=== PATIENT | male | born 1950 | race Caucasian/White ===

== ENCOUNTER 2017-01-23 18:15 | Observation (INO) | payer OTHER ==
--- NOTE | 2017-01-23 18:45 | CPEKG ---
Heart Rate: 95 RR Interval: 632 P-R Interval: 204 QRSD Interval: 84 QT Interval: 344 QTC Interval: 433 P [place]: 47 QRS [place]: 67 T Wave [place]: 17 EKG Severity - NORMAL ECG - EKG Impression: INCOMPLETE ANALYSIS DUE TO MISSING DATA IN PRECORDIAL LEAD(S) EKG Impression: SINUS RHYTHM Electronically Signed By: Kapil Hernandez 23-Jan-2017 22:08:13
--- NOTE | 2017-01-23 19:09 | EDPHY ---
H & P Stated Complaint: fall onto back, chest/head pain, on blood thinners Time Seen by Provider: 01/23/17 18:35 HPI/ROS: CHIEF COMPLAINT: Headache, chest pain following fall earlier today HISTORY OF PRESENT ILLNESS: The patient [place]. The patient drove to [place] today and visit [place]. Apparently the patient slipped and fell on a icy slope and landed on his backside. Initially he was not bothered by pain but then developed a headache approximately an hour later and some anterior chest discomfort and shortness of breath. The patient does have a history of pulmonary embolism and is currently anticoagulated with Coumadin. The patient did not actually strike his head when he fell. REVIEW OF SYSTEMS: A comprehensive 10 point review of systems is otherwise negative aside from elements mentioned in the history of present illness. Source: Patient Exam Limitations: No limitations - Personal History Current Tetanus/Diphtheria Vaccine: Yes Current Tetanus Diphtheria and Acellular Pertussis (TDAP): Yes - Medical/Surgical History Hx Asthma: No Hx Chronic Respiratory Disease: No Hx Diabetes: No Hx Cardiac Disease: No Hx Renal Disease: No Hx Cirrhosis: No Hx Alcoholism: No Hx HIV/AIDS: No Hx Splenectomy or Spleen Trauma: No Other PMH: PEs, cholecystectomy, skull fx, pins L side of face, parkinsons, mylofibrosis, lyme's disease - Social History Smoking Status: Never smoked - Physical Exam Exam: General Appearance: No acute distress Head: Atraumatic Eyes: Pupils equal, round, reactive ENT, Mouth: No hemotympanum, no oral trauma Neck: Nontender, trachea midline Respiratory: No chest wall tender, subcutaneous air, lungs clear bilaterally Cardiovascular: Regular rate and rhythm Abdomen: Abdomen is soft and nontender, pelvis stable Skin: No lacerations, No abrasion Back: No midline T/L/S pain Extremities: Nontender, full range of motion Neurological: A&Ox3, normal motor function, normal sensory exam Constitutional: Initial Vital Signs Temperature (C) 36.8 C 01/23/17 18:19 Heart Rate 96 01/23/17 18:19 Respiratory Rate 15 01/23/17 18:19 Blood Pressure 132/81 H 01/23/17 18:19 O2 Sat (%) 90 L 01/23/17 18:19 O2 Delivery Mode Nasal Cannula O2 (L/minute) 2 Allergies/Adverse Reactions: doxycycline Allergy (Verified 01/23/17 18:18) Sulfa (Sulfonamide Antibiotics) Allergy (Verified 01/23/17 18:18) Home Medications: Medication Instructions Recorded Acetaminophen [Tylenol ES 500 mg 1,000 mg PO Q6H PRN 01/23/17 (*)] Carbidopa/Levodopa [Rytary ER 2 each PO DAILY@22 01/23/17 61.25 mg-245 mg Cap] Carbidopa/Levodopa [Rytary ER 3 each PO QID@06,10,14,18 01/23/17 61.25 mg-245 mg Cap] Cholecalciferol Vit D3 [Vitamin D3 2,000 units PO DAILY 01/23/17 (*)] Herbals/Supplements -Info Only 1 ea PO DAILY 01/23/17 Multivitamins [Multivitamin (*)] 1 each PO DAILY 01/23/17 [place]-3 Fatty Acids [Fish Oil 1000 2,000 mg PO DAILY 01/23/17 mg (*)] Ropinirole HCl [Ropinirole ER] 16 mg PO DAILY@19 01/23/17 Warfarin Sodium [Coumadin 2MG (*)] 6 mg PO MOTUWEFRSA@16 01/23/17 Warfarin Sodium [Coumadin 2MG (*)] 7 mg PO SUTH@16 01/23/17 traZODone [traZODONE 50MG (*)] 100 mg PO HS 01/23/17 Medical Decision Making - Diagnostics EKG Interpretation: EKG: Complete interpretation has been separately recorded in the [email or web address] archive. Summary impression: Sinus rhythm, rate 95 Imaging: CT head without contrast: Negative for acute intracranial hemorrhage, old skull fracture noted, old facial hardware noted. Images reviewed by myself and discussed with radiologist Dr. Nguyen. ED Course/Re-evaluation: The patient presents the emergency department with complaints of headache following a mechanical fall earlier today. Given the fact he is anticoagulated a stat CT scan of his head was ordered which fortunately demonstrated no evidence of intracranial hemorrhage. The patient also complains of some mild anterior chest discomfort and dyspnea. The patient's initial EKG demonstrates nonspecific ST T wave changes but no evidence of ST segment elevation myocardial infarction. The patient was placed on supplemental oxygen. He had an IV established. He received a L of normal saline. The patient's chest x-ray did demonstrate no evidence of a focal infiltrate. Given the patient's ongoing complaints of chest pain I did order a CT pulmonary angiogram to exclude dissection. This was interpreted by Dr. Nguyen as showing a possible lingular infiltrate but no evidence of aortic dissection or pulmonary embolism. The patient's initial EKG demonstrates nonspecific changes and his initial troponin is normal. The patient had serial examinations in the ED and continues to complain of some anterior chest pain and headache. I suspect the patient's symptoms are secondary to a mild altitude illness. Given the patient's ongoing chest pain and subtle EKG changes I do feel he should be admitted to the hospital for observation this evening. Consultation is made with Dr. Lavinia Mathis from the hospitalist service who will admit the patient this evening. Differential Diagnosis: Differential diagnosis considered includes intracranial hemorrhage, aortic dissection, myocardial infarction, altitude illness, pneumonia - Data Points Laboratory Results: Laboratory Results 01/23/17 19:20 01/23/17 19:20 01/23/17 01/23/17 01/23/17 19:21 19:20 19:20 WBC RBC Hgb POC Hgb 10.2 gm/dL L gm/dL (14.5-17.3) Hct POC Hct 30 % L % (42.8-50.6) MCV MCH MCHC RDW Plt Count MPV Neut % (Auto) Lymph % (Auto) [place] % (Auto) Eos % (Auto) Baso % (Auto) Nucleat RBC Rel Count Absolute Neuts (auto) Absolute Lymphs (auto) Absolute Monos (auto) Absolute Eos (auto) Absolute Basos (auto) Absolute Nucleated RBC Immature Gran % Seg Neutrophils % Band Neutrophils % Lymphocytes % Monocytes % Eosinophils % Basophils % Immature Gran # Absolute Seg Neuts Absolute Band Neuts Absolute Lymphocytes Absolute Monocytes Absolute Eosinophils Absolute Basophils Nucleated RBCs Platelet Estimate Large Platelets Hypochromasia Elliptocytes Acanthocytes (Spur) Smear Review By PT 23.9 SEC H SEC (12.0-15.0) INR 2.12 H (0.83-1.16) APTT 43.2 SEC H SEC (23.0-38.0) POC Sodium 138 mEq/L mEq/L (134-144) Sodium 135 mEq/L mEq/L (134-144) POC Potassium 4.2 mEq/L mEq/L (3.3-5.0) Potassium 4.8 mEq/L mEq/L (3.5-5.2) POC Chloride 99 mEq/L mEq/L (96-108) Chloride 101 mEq/L mEq/L (97-110) Carbon Dioxide 25 mEq/l mEq/l (22-31) Anion Gap 9 mEq/L mEq/L (8-16) POC BUN 18 mg/dL mg/dL (7-23) BUN 19 mg/dL mg/dL (7-23) Creatinine 0.8 mg/dL mg/dL (0.7-1.3) POC Creatinine 0.9 mg/dL mg/dL (0.8-1.5) Estimated GFR > 60 Glucose 97 mg/dL mg/dL (70-100) POC Glucose 105 mg/dL H mg/dL (70-100) Calcium 9.1 mg/dL mg/dL (8.5-10.4) Troponin I < 0.012 ng/mL ng/mL (0-0.034) NT-Pro-B Natriuret Pep 459 pg/mL H pg/mL (0-125) 01/23/17 19:20 WBC 13.02 10^3/uL H 10^3/uL (3.80-9.50) RBC 3.60 10^6/uL L 10^6/uL (4.40-6.38) Hgb 9.3 g/dL L g/dL (13.7-17.5) POC Hgb Hct 29.8 % L % (40.0-51.0) POC Hct MCV 82.8 fL fL (81.5-99.8) MCH 25.8 pg L pg (27.9-34.1) MCHC 31.2 g/dL L g/dL (32.4-36.7) RDW 25.6 % H % (11.5-15.2) Plt Count 592 10^3/uL H 10^3/uL (150-400) MPV 10.8 fL fL (8.7-11.7) Neut % (Auto) Not Reported Lymph % (Auto) Not Reported [place] % (Auto) Not Reported Eos % (Auto) Not Reported Baso % (Auto) Not Reported Nucleat RBC Rel Count 1.5 % H % (0.0-0.2) Absolute Neuts (auto) Not Reported Absolute Lymphs (auto) Not Reported Absolute Monos (auto) Not Reported Absolute Eos (auto) Not Reported Absolute Basos (auto) Not Reported Absolute Nucleated RBC 0.19 10^3/uL H 10^3/uL (0-0.01) Immature Gran % Not Reported Seg Neutrophils % 79 % % Band Neutrophils % 4 % % Lymphocytes % 10 % % Monocytes % 4 % % Eosinophils % 1 % % Basophils % 2 % % Immature Gran # Not Reported Absolute Seg Neuts 10.29 10^/uL H 10^/uL (1.70-6.50) Absolute Band Neuts 0.52 10^3/uL 10^3/uL (0.00-0.70) Absolute Lymphocytes 1.30 10^3/uL 10^3/uL (1.00-3.00) Absolute Monocytes 0.52 10^3/uL 10^3/uL (0.30-0.80) Absolute Eosinophils 0.13 10^3/uL 10^3/uL (0.03-0.40) Absolute Basophils 0.26 10^3/uL H 10^3/uL (0.02-0.10) Nucleated RBCs 1 /100 WBC H /100 WBC (0-0) Platelet Estimate INCREASED H (ADEQ) Large Platelets PRESENT H Hypochromasia 2+ H Elliptocytes 2+ H Acanthocytes (Spur) 1+ H Smear Review By Pending PT INR APTT POC Sodium Sodium POC Potassium Potassium POC Chloride Chloride Carbon Dioxide Anion Gap POC BUN BUN Creatinine POC Creatinine Estimated GFR Glucose POC Glucose Calcium Troponin I NT-Pro-B Natriuret Pep Point of Care Test Results: 01/23/17 19:21 POC Sodium 138 POC Potassium 4.2 POC Chloride 99 POC BUN 18 POC Creatinine 0.9 POC Glucose 105 H Departure - Departure Disposition: [facility] Inpatient Acute Clinical Impression: Headache, Chest pain, Altitude illness Condition: Fair
[2017-01-23] MEDS ORDERED: IOPAMIDOL (ISOVUE-300) 100 ML BTL IV ONE (19:46)
[2017-01-23 19:47] LABS: ABSOLUTE NRBC COUNT 0.19 10^3/uL (0-0.01); ADD DIFF? YES; ATYPICAL LYMPHOCYTE FLAG 0 (0-99); HEMATOCRIT 29.8 % (40.0-51.0); HEMOGLOBIN 9.3 g/dL (13.7-17.5); LEFT SHIFT FLG 70 (0-99); LIPEMIA HEMOLYSIS FLAG 80 (0-99); MEAN CELL HEMOGLOBIN 25.8 pg (27.9-34.1); MEAN CELL HEMOGLOBIN CONCENTR. 31.2 g/dL (32.4-36.7); MEAN CELL VOLUME 82.8 fL (81.5-99.8); MEAN PLATELET VOLUME 10.8 fL (8.7-11.7); PLATELET CLUMPS FLAG 0 (0-99); PLATELET COUNT 592 10^3/uL (150-400)
[2017-01-23 19:50] LABS: FRAGMENT RBC FLAG 300 (0-99); NRBC-AUTO% 1.5 % (0.0-0.2); RED CELL DISTRIBUTION WIDTH 25.6 % (11.5-15.2)
[2017-01-23 19:51] LABS: ADD SCAN? NO; INR 2.12 (0.83-1.16); PROTIME(PATIENT) 23.9 SEC (12.0-15.0)
[2017-01-23 19:52] LABS: ANION GAP 9 mEq/L (8-16); APTT 43.2 SEC (23.0-38.0); CALCIUM 9.1 mg/dL (8.5-10.4); CARBON DIOXIDE 25 mEq/l (22-31); CHLORIDE 101 mEq/L (97-110); CREATININE 0.8 mg/dL (0.7-1.3); GLOMERULAR FILTRATION RATE > 60; GLUCOSE 97 mg/dL (70-100); POTASSIUM 4.8 mEq/L (3.5-5.2); SODIUM 135 mEq/L (134-144)
[2017-01-23 19:55] LABS: ADD MORPH? NO
[2017-01-23 20:04] LABS: TROPONIN I < 0.012 ng/mL (0-0.034)
[2017-01-23 20:47] LABS: ACANTHOCYTES 1+; ELLIPTOCYTES 2+
[2017-01-23 20:48] LABS: HYPOCHROMIA 2+; LARGE PLATELETS PRESENT; PLATELET ESTIMATE INCREASED (ADEQ)
[2017-01-23] MEDS ORDERED: oxyCODONE IR 5 MG TAB PO PRN (22:07)
[2017-01-23] MEDS ORDERED: ALBUTEROL 3 ML DEYVIAL IH PRN (22:07)
[2017-01-23] MEDS ORDERED: LORazepam 0.5 MG TAB PO PRN (22:07)
[2017-01-23] MEDS ORDERED: ONDANSETRON 4 MG/2 ML VIAL IVP PRN (22:07)
[2017-01-23] MEDS ORDERED: ONDANSETRON DISINTEGRATING 4 MG TAB PO PRN (22:07)
[2017-01-23] MEDS ORDERED: ACETAMINOPHEN 325 MG TAB PO PRN (22:07)
[2017-01-23] MEDS ORDERED: ACETAMINOPHEN 500 MG TAB PO PRN (22:11)
[2017-01-23] MEDS ORDERED: NS 1,000 ML IV SCH (22:15)
[2017-01-23] MEDS ORDERED: NS 500 ML IV ONE (22:17)
--- NOTE | 2017-01-23 23:47 | GHP ---
[f rep st] HISTORY AND PHYSICAL DATE OF ADMISSION: 01/23/2017 CHIEF COMPLAINT: Fall on his back and shortness of breath. HISTORY: This is a 66-year-old with a past medical history of myelofibrosis, as well as prior DVT a nd PE on chronic anticoagulation visiting [place] from [place], who presents after falling on his back up in [place]. The patient is accompanied by his sister, and they note that they drove to [place] from [place] yesterday and went straight to [place]. He has not had any recent illness, but di martina note that recently he has had some shortness of breath and cough, which he attributed initially to an upper respiratory infection, and then to perhaps being at altitude. He was concerned after fall ing on his back that he may have hit his head and being that he is on anticoagulation he should have a further evaluation. Head CT in the ER was negative, but the patient was also complaining of ches t pain and headache and imaging was concerning for possible pneumonia, and he was therefore admitted . He notes he feels better since arrival in the emergency department, but symptoms are not complete ly resolved. PAST MEDICAL HISTORY: Includes: 1. Recurrent PE/DVT. 2. Myelofibrosis with chronic thrombocytosis and anemia. 3. Parkinson disease. 4. Lyme disease. PAST SURGICAL HISTORY: Includes: 1. Cholecystectomy. 2. face. FAMILY HISTORY: This is reviewed and is noncontributory. SOCIAL HISTORY: Again, patient lives in [place]. He is a nonsmoker, drinks rarely, accompanied b y his sister. MEDICATIONS: Include: 1. Carbidopa levodopa. 2. Tylenol. 3. [place]-3 fatty acids. 4. Multivitamin. 5. Ropinirole. 6. Cholecalciferol. 7. Trazodone. 8. Warfarin. ALLERGIES: Include doxycycline and sulfa. PHYSICAL EXAM: VITAL SIGNS: BP 119/69, heart rate 93, respiratory rate 20, O2 sats 90% on room air , temperature is 37.1. GENERAL: A well-developed/well-nourished appearing male, awake and alert, no acute distress. EYES: Anicteric. HENT: Oropharynx clear. CARDIOVASCULAR: RRR, no MRG. PULMONARY: Patient largely c lear to auscultation except for his right mid to the lower lobe with crackles. Normal work of breat jose. ABDOMEN: Soft, nontender. Positive bowel sounds. EXTREMITIES: No clubbing, cyanosis, or e florentino. SKIN: Warm, dry, well perfused. NEURO/PSYCH: Oriented, appropriate, pleasant. CLINICAL DATA: Labs reviewed. Significant for white blood cell count 13.02, hemoglobin 9.3, hemato crit 29.8, platelets 592. INR is 2.1. Chemistry is unremarkable. Chest x-ray reviewed and interpreted independently by myself shows no acute findings. Chest and thorax CT angiogram showing lingular pneumonia, as well as linear scarring versus atelecta sis of the right lower lobe without PE and 1 cm hepatic lesion. EKG reviewed and interpreted independently by myself showing sinus rhythm without ischemic changes. ASSESSMENT/PLAN: This is a 66-year-old man with past medical history of Parkinson disease, as well as chronic anemia secondary to myelofibrosis, presenting status post fall with headache, chest pain, shortness of breath. 1. Mechanical fall without obvious injuries. Again, patient is on chronic anticoagulation, but hea d CT was negative. Will monitor overnight. 2. Chest pain with findings consistent with likely pneumonia though difficult to exclude mild pulmo nary edema related to high altitude. He is mildly hypoxic at 90%. Notes on further evaluation that he has been perhaps febrile and feeling ill for several days. Will start treatment for pneumonia a s per . Will monitor on telemetry and obtain serial troponins. 3. Pneumonia. Again, patient does have evidence of likely lingular pneumonia on CT angiogram. Sta rt on levofloxacin as per above. 4. Myelofibrosis. This does appear to be at baseline. He states his anemia has been a little bit worse than usual, and he recently underwent EGD and colonoscopy, which were unremarkable. 5. History of recurrent pulmonary embolism/deep venous thrombosis. He is therapeutic on anticoagul ation, which will be continued. He does not have a recurrent pulmonary embolism on CT angiogram. 6. Parkinson disease. Will continue his usual medications. 7. Disposition. Observation status. Suspect he will need less than 48 hours stay for evaluation a nd management of above. 8. Patient is new to my care. Old records reviewed summarized as per HPI and past medical history. Care plan reviewed with ER physician, and further history obtained from patient's sister present a t bedside. /[id number]/MODL
[2017-01-24 06:00] LABS: ABSOLUTE NRBC COUNT 0.13 10^3/uL (0-0.01); ADD DIFF? YES; ADD MORPH? YES; ATYPICAL LYMPHOCYTE FLAG 0 (0-99); HEMATOCRIT 27.8 % (40.0-51.0); HEMOGLOBIN 8.7 g/dL (13.7-17.5); LEFT SHIFT FLG 70 (0-99); LIPEMIA HEMOLYSIS FLAG 80 (0-99); MEAN CELL HEMOGLOBIN CONCENTR. 31.3 g/dL (32.4-36.7); MEAN PLATELET VOLUME 10.6 fL (8.7-11.7); PLATELET CLUMPS FLAG 10 (0-99); PLATELET COUNT 491 10^3/uL (150-400); RED BLOOD CELL COUNT 3.35 10^6/uL (4.40-6.38)
[2017-01-24 06:02] LABS: ADD SCAN? NO; FRAGMENT RBC FLAG 100 (0-99); RED CELL DISTRIBUTION WIDTH 25.5 % (11.5-15.2)
[2017-01-24 06:20] LABS: ANION GAP 8 mEq/L (8-16); CALCIUM 8.3 mg/dL (8.5-10.4); CARBON DIOXIDE 23 mEq/l (22-31); CHLORIDE 103 mEq/L (97-110); CREATININE 0.7 mg/dL (0.7-1.3); GLOMERULAR FILTRATION RATE > 60; GLUCOSE 101 mg/dL (70-100); POTASSIUM 4.4 mEq/L (3.5-5.2); SODIUM 134 mEq/L (134-144)
[2017-01-24 06:23] LABS: TROPONIN I < 0.012 ng/mL (0-0.034)
[2017-01-24 06:45] LABS: ELLIPTOCYTES 2+; HYPOCHROMIA 1+; POLYCHROMASIA 1+
[2017-01-24 06:47] LABS: MACROCYTES 1+
[2017-01-24 06:48] LABS: SCHISTOCYTES 2+
[2017-01-24 06:50] LABS: GIANT PLATELETS PRESENT
[2017-01-24 06:51] LABS: MICROCYTES 2+
[2017-01-24 06:52] LABS: PLATELET ESTIMATE INCREASED (ADEQ)
[2017-01-24] MEDS ORDERED: RYTARY PO PRN (08:38)
[2017-01-24] MEDS ORDERED: CHOLECALCIFEROL VIT D3 2,000 UNITS TAB/CAP PO SCH (09:00)
[2017-01-24] MEDS ORDERED: OMEGA-3 FATTY ACIDS 1,000 MG CAP PO SCH (09:00)
[2017-01-24] MEDS ORDERED: MULTIVITAMINS 1 EACH TAB PO SCH (09:00)
[2017-01-24 09:11] VITALS: BP 111/67; PULSE 96; RESP 28; TEMP 97.9
[2017-01-24] MEDS: LEVODOPA PO SCH ×3 (09:40→16:25)
[2017-01-24] MEDS: CARBIDOPA PO SCH ×3 (09:40→16:25)
--- NOTE | 2017-01-24 12:53 | GDS ---
[f rep st] DISCHARGE SUMMARY DISCHARGE DIAGNOSES: 1. Mechanical fall. 2. Shortness of breath, most likely due to anemia in the setting of myelofibrosis with travel to [facility]. 3. Lingular infiltrate on CT and chest x-ray, without any other obvious clinical signs of pneumonia . 4. History of recurrent pulmonary embolism and deep venous thrombosis. 5. Parkinson's disease. CONSULTANTS: None. HOSPITAL COURSE: Shortness of breath: The patient was placed on observation, where a CT angio of t he chest was done that was negative for PE, but did show a lingular infiltrate. The patient has not had any fevers. He denies any significant cough. His white blood cell count is mildly elevated. The patient received a dose of levofloxacin while in the hospital. On day of discharge, the patient states he feels back to his baseline. I offered a course of antibi otics, but the patient tells me he does not "think" that he has pneumonia. I thought it was reasona ble for him to be discharged off antibiotics with close monitoring, which the patient would like to proceed with. He really thinks that his shortness of breath was a factor of traveling to altitude i n the setting of his anemia from myelofibrosis. PHYSICAL EXAM ON DISCHARGE: VITAL SIGNS: Blood pressure 111/67, pulse of 96, respiratory rate 28, O2 sat 98% on 2 L. Temperature afebrile. GENERAL: In no acute distress. HEART: S1, S2. LUNGS: Clear. No wheezes, rales, or rhonchi. ABDOMEN: Soft. EXTREMITIES: No edema. PERTINENT LABS AND STUDIES: Chest x-ray done 01/24/2017 was reviewed, showing a patchy infiltrate i n the lingula. EKG done on day of discharge, in sinus rhythm. Rate 93 beats per minute, with no ac coquille ischemic changes. DISCHARGE MEDICATIONS: Please refer to discharge medication reconciliation in [facility] for details. DISCHARGE INSTRUCTIONS: The patient will be discharged from the hospital with supplemental oxygen, since he plans to go back to the [facility]. He was instructed to seek medical attention if he develops cough or fever, any other signs and symptoms of pneumonia. /[id number]/MODL
[2017-01-24 13:42] VITALS: O2SAT 88
[2017-01-24] MEDS ORDERED: WARFARIN SODIUM 2 MG TAB PO SCH (16:00)
[2017-01-24] MEDS ORDERED: ROPINIROLE HCL 4 MG PO SCH ×2 (19:00)
[2017-01-24] MEDS ORDERED: traZODone 100 MG TAB PO SCH (21:00)
[2017-01-24] MEDS ORDERED: LEVODOPA PO SCH (22:00)
[2017-01-24] MEDS ORDERED: CARBIDOPA PO SCH (22:00)
--- NOTE | 2017-01-25 12:14 | CPEKG ---
Heart Rate: 93 RR Interval: 645 P-R Interval: 192 QRSD Interval: 88 QT Interval: 344 QTC Interval: 428 P Accident: 42 QRS Accident: 68 T Wave Accident: 1 EKG Severity - NORMAL ECG - EKG Impression: SINUS RHYTHM Electronically Signed By: Mac Coronado 25-Jan-2017 12:14:22
[2017-01-26] MEDS ORDERED: WARFARIN SODIUM 2 MG TAB PO SCH (16:00)
== END 2017-01-24 14:00 | disposition home or self-care (01) ==
LOC: F2W 22:18
PROVIDERS: ADMIT Internal Medicine; ATTEND Family Medicine
DX: D46.9 Myelodysplastic syndrome, unspecified (principal); D64.89 Other specified anemias; Z91.81 History of falling; R91.8 Other nonspecific abnormal finding of lung field; G20 Parkinson's disease; Z86.711 Personal history of pulmonary embolism; Z86.718 Personal history of other venous thrombosis and embolism
CPT/HCPCS: 70450; 71010; 71275; 92610; 93005; 99285; G0378; G8996; G8997; G8998; J1956; Q9967; 82947-QW